=== PATIENT | male | born 1980 ===

== ENCOUNTER 2017-10-29 13:23 | Emergency (ER) | payer OTHER ==
[2017-10-29 13:33] VITALS: RESP 18; TEMP 98.4; O2SAT 97
[2017-10-29] MEDS ORDERED: Lidocaine 2% Inj (20ml) INFIL ONE (14:10)
[2017-10-29] MEDS ORDERED: Tdap Vaccine 0.5 ml Vial (10-64 yrs) IM ONE ×2 (14:10→14:20)
[2017-10-29] MEDS ORDERED: Lidocaine 2% MPF (5 ml) Inj ONE (14:19)
--- NOTE | 2017-10-29 14:19 | C.PDOC ---
History Of Present Illness 37 y/o male presents to ED for evaluation of injury and laceration sustained to right hand prior to arrival while at work. Patient admits to active bleeding and swelling to hand, denies numbness or weakness. Time Seen by Provider: 10/29/17 13:44 Chief Complaint (Nursing): Abnormal Skin Integrity History Per: Patient History/Exam Limitations: no limitations Onset/Duration Of Symptoms: Hrs Current Symptoms Are (Timing): Still Present Past Medical History Reviewed: Historical Data, Nursing Documentation, Vital Signs Vital Signs: Last Vital Signs Temp 98.4 F 10/29/17 13:30 Pulse 88 10/29/17 15:08 Resp 18 10/29/17 15:08 BP 148/93 H 10/29/17 15:08 Pulse Ox 97 10/29/17 15:08 - Medical History PMH: HTN Surgical History: No Surg Hx Family History: States: No Known Family Hx - Social History Hx Alcohol Use: Yes Hx Substance Use: No - Immunization History Hx Tetanus Toxoid Vaccination: No Hx Influenza Vaccination: No Hx Pneumococcal Vaccination: No Review Of Systems Constitutional: Negative for: Fever, Chills Musculoskeletal: Positive for: Hand Pain Skin: Negative for: Rash Neurological: Negative for: Weakness, Numbness Physical Exam - Physical Exam Appears: Non-toxic, No Acute Distress Skin: Warm, Dry, No Rash, Other (6cm linear laceration to dorsal right hand along 3rd metacarpal. No tendon involvement) Head: Atraumatic, Normacephalic Eye(s): bilateral: Normal Inspection Oral Mucosa: Moist Neck: Normal ROM Extremity: Normal ROM, No Tenderness, Capillary Refill (<2 seconds), No Deformity, Swelling (right hand), Other (see skin) Pulses: Left Radial: Normal, Right Radial: Normal Neurological/Psych: Oriented x3, Normal Speech, Normal Motor, Normal Sensation ED Course And Treatment O2 Sat by Pulse Oximetry: 97 (RA) Laceration - Laceration Repair right hand Wound Length (In cm): 6cm Description Of Wound: Linear, Clean Wound Cleansed With: Betadine, Sterile Saline Anesthesia: Lidocaine 2% Wound Examination: Irrigated With Saline, No FB With Wound Exploration, No Tendon Injury With Wound Exploration Wound Closure: Suture (8) Suture Technique And Material Used: Interrupted, Nylon (4-O) Wound Complexity: Simple Medical Decision Making Medical Decision Making: Impression: Hand injury and laceration Plan: XRay to rule out fracture or foreign body Laceration repair Progress: XRay viewed by me shows no fracture or foreign body. Wound closed with 8 sutures , see full procedure note. Patient tolerated well. Bacitracin and nonadherent dressing was applied. Patient given verbal and written instructions on wound care and to follow up in 10 days for suture removal. Disposition Counseled Patient/Family Regarding: Studies Performed, Diagnosis, Need For Followup, Rx Given - Disposition Referrals: Brenda Carter MD [Staff Provider] - Disposition: HOME/ ROUTINE Disposition Time: 14:42 Condition: STABLE Additional Instructions: Remove dressing in 24 hours. Keep area clean and dry. May wash gently with soap and water. Change dressing 1-2 times daily, can apply antibiotic ointment. Return to ER if fever occurs, redness or swelling around wound, pus in the wound. 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 - Scribe Statement The provider has reviewed the documentation as recorded by the Lewis Cates All medical record entries made by the Lewis were at my direction and personally dictated by me. I have reviewed the chart and agree that the record accurately reflects my personal performance of the history, physical exam, medical decision making, and the department course for this patient. I have also personally directed, reviewed, and agree with the discharge instructions and disposition.
[2017-10-29] MEDS ORDERED: Bacitracin 500 Units/gm Oint Foilpak UD TOP ONE (14:42)
[2017-10-29] MEDS ORDERED: Bacitracin 500 Units/gm Oint Foilpak UD ONE (14:45)
[2017-10-29 15:09] VITALS: BP 148/93; PULSE 88
--- NOTE | 2017-10-29 16:48 | RAD ---
PROCEDURE: Right Hand Radiographs. HISTORY: injury and laceration COMPARISON: None. FINDINGS: BONES: Apparent old healed fracture deformity right 5th metacarpal. JOINTS: Note is made of a small subchondral cyst base proximal phalanx right thumb at the level of the 1st MCP joint. The. SOFT TISSUES: Mild dorsal soft tissue swelling with questionable laceration with at least a 2 tiny radiopaque densities also seen along the skin surface and/or within the subcutaneous tissues OTHER FINDINGS: None. IMPRESSION: No acute fracture seen. Old healed boxer fracture deformity 5th metacarpal. Dorsal soft tissue swelling with questionable laceration and a few tiny radiopaque densities as detailed above.
== END 2017-10-29 15:09 | disposition home or self-care (01) ==
LOC: C.ER 13:23
DX: S61.411A Laceration without foreign body of right hand, initial encounter (principal); X58.XXXA Exposure to other specified factors, initial encounter; Y92.89 Other specified places as the place of occurrence of the external cause; Y99.0 Civilian activity done for income or pay

== ENCOUNTER 2017-11-07 08:23 | Emergency (ER) | payer OTHER ==
[2017-11-07 08:40] VITALS: BP 135/87; PULSE 88; RESP 18; TEMP 98; O2SAT 97
--- NOTE | 2017-11-07 08:48 | C.PDOC ---
History Of Present Illness 37yo male, comes to ER for suture removal. He had 8 sutures placed on his right had 10 days ago. Patient denies any new injuries, fever or chills. No other complaints. Time Seen by Provider: 11/07/17 08:31 Chief Complaint (Nursing): Suture/Staple Removal History Per: Patient History/Exam Limitations: no limitations Onset/Duration Of Symptoms: Days Ago (10) Location Of Injury: Right: Hand Past Medical History Reviewed: Historical Data, Nursing Documentation, Vital Signs Vital Signs: Last Vital Signs Temp 98.0 F 11/07/17 08:30 Pulse 88 11/07/17 08:30 Resp 18 11/07/17 08:30 BP 135/87 11/07/17 08:30 Pulse Ox 97 11/07/17 08:51 - Medical History PMH: HTN Surgical History: No Surg Hx Family History: States: No Known Family Hx - Social History Hx Alcohol Use: Yes Hx Substance Use: No - Immunization History Hx Tetanus Toxoid Vaccination: No Hx Influenza Vaccination: No Hx Pneumococcal Vaccination: No Review Of Systems Except As Marked, All Systems Reviewed And Found Negative. Constitutional: Negative for: Fever, Chills Musculoskeletal: Positive for: Other (sutures on right hand) Skin: Positive for: Other (sutures right hand) Physical Exam - Physical Exam Appears: Non-toxic Skin: Warm, Dry Head: Normacephalic Eye(s): bilateral: Normal Inspection Cardiovascular: Rhythm Regular Respiratory: Normal Breath Sounds Extremity: Normal ROM (FROM right hand), No Tenderness, Capillary Refill (< 2 seconds), No Deformity, Other (well heaing sutures noted to dorsum right hand; mild swelling. no redness, or signs of infection noted.) Pulses: Right Radial: Normal Neurological/Psych: Oriented x3, Normal Motor, Normal Sensation Gait: Steady ED Course And Treatment O2 Sat by Pulse Oximetry: 97 (RA) Pulse Ox Interpretation: Normal Progress Note: Sutures removed using suture removal kit. Wound area cleaned and steri-strips applied. Patient stable for discharge home. 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 - Scribe Statement The provider has reviewed the documentation as recorded by the Lewis Valenzuela Provider Attestation: All medical record entries made by the Lewis were at my direction and personally dictated by me. I have reviewed the chart and agree that the record accurately reflects my personal performance of the history, physical exam, medical decision making, and the department course for this patient. I have also personally directed, reviewed, and agree with the discharge instructions and disposition.
--- NOTE | 2017-11-07 08:49 | C.PDOC ---
Time Seen by Provider: 11/07/17 08:31 Chief Complaint (Nursing): Suture/Staple Removal Past Medical History Vital Signs: Last Vital Signs Temp 98.0 F 11/07/17 08:30 Pulse 88 11/07/17 08:30 Resp 18 11/07/17 08:30 BP 135/87 11/07/17 08:30 Pulse Ox 97 11/07/17 08:30 - Medical History PMH: HTN - Social History Hx Alcohol Use: Yes Hx Substance Use: No - Immunization History Hx Tetanus Toxoid Vaccination: No Hx Influenza Vaccination: No Hx Pneumococcal Vaccination: No ED Course And Treatment O2 Sat by Pulse Oximetry: 97 Disposition Counseled Patient/Family Regarding: Diagnosis - Disposition Disposition: HOME/ ROUTINE Disposition Time: 08:50 Condition: GOOD Additional Instructions: Keep steri strips in place till they fall off Instructions: Stitches Removal - POA Present On Arrival: None - Clinical Impression Clinical Impression: Removal of suture
== END 2017-11-07 08:53 | disposition home or self-care (01) ==
LOC: C.ER 08:23
DX: Z48.02 Encounter for removal of sutures (principal)